=== PATIENT | female | born 1980 | race Caucasian/White ===

== ENCOUNTER 2018-06-29 12:42 | Outpatient (CLI) | payer BC, OTHER ==
[~2018-06-29 12:42] MED LIST: SERT100T PO
[2018-06-29] MEDS ORDERED: 5-HY100C3 PO (13:17)
== END 2018-06-29 23:59 | disposition home or self-care (01) ==
LOC: STAR 12:42
PROVIDERS: ATTEND Otolaryngology
DX: Z02.9 Encounter for administrative examinations, unspecified (principal)

== ENCOUNTER 2018-07-03 06:43 | Day surgery (SDC) | payer BC, OTHER ==
[~2018-07-03] VITALS: Ht 165.1 cm; Wt 70.0 kg
[~2018-07-03 06:43] MED LIST changes: +5-HY100C3 PO
[2018-07-03] MEDS ORDERED: LACTATED RINGERS 1,000 ML IV SCH ×2 (07:08→07:25)
[2018-07-03] MEDS ORDERED: OXYMETAZOLINE NASAL SPRAY 0.05%, 15ML ONE (07:10)
[2018-07-03 07:22] VITALS: BP 103/65
[2018-07-03] MEDS ORDERED: DIAZEPAM 5 MG TABLET PO ONE (07:30)
[2018-07-03] MEDS ORDERED: SCOPOLAMINE PATCH, 1.5MG PATCH.TD72 TD ONE (07:30)
[2018-07-03] MEDS ORDERED: ONDANSETRON ODT 8 MG PO ONE (07:30)
[2018-07-03] MEDS ORDERED: ACETAMINOPHEN 500 MG TABLET PO ONE (07:30)
[2018-07-03] MEDS ORDERED: GABAPENTIN 300 MG CAPSULE PO ONE (07:30)
[2018-07-03 07:54] LABS: HCG UR SG 1.015 (1.003-1.030)
[2018-07-03] MEDS ORDERED: MIDAZOLAM 1 MG/ML, 2ML ONE (08:22)
[2018-07-03] MEDS ORDERED: FENTANYL PF 100 MCG/2ML ONE ×2 (08:22→09:39)
[2018-07-03] MEDS ORDERED: SUCCINYLCHOLINE 20 MG/ML, 10ML ONE (08:41)
[2018-07-03] MEDS ORDERED: PROPOFOL 10 MG/ML, 50ML ONE (08:41)
[2018-07-03] MEDS ORDERED: KETOROLAC 30 MG/1 ML ONE (08:41)
[2018-07-03] MEDS ORDERED: hydrALAzine 20 MG/ML, 1ML IV PRN (09:00)
[2018-07-03] MEDS ORDERED: OXYcodone 5 MG/5 ML ORAL.SOL UDC PO PRN (09:00)
[2018-07-03] MEDS ORDERED: ALBUTEROL/IPRATROPIUM 2.5MG/0.5MG, 3 ML NPPB PRN (09:00)
[2018-07-03] MEDS ORDERED: MIDAZOLAM 1 MG/ML, 2ML IV PRN (09:00)
[2018-07-03] MEDS ORDERED: ONDANSETRON 2MG/ML, 2ML IV PRN (09:00)
[2018-07-03] MEDS ORDERED: HYDROmorphone 2 MG/ML, 1ML IVPush PRN (09:00)
[2018-07-03] MEDS ORDERED: PROMETHAZINE 25 MG/ML, 1ML IV PRN (09:00)
[2018-07-03] MEDS ORDERED: NEOSTIGMINE 1 MG/ML, 10ML ONE (09:07)
[2018-07-03] MEDS ORDERED: CEFAZOLIN 1,000 MG ONE (09:07)
[2018-07-03] MEDS ORDERED: DEXAMETHASONE 4 MG/ML, 1ML ONE (09:07)
[2018-07-03] MEDS ORDERED: PROPOFOL 10 MG/ML, 20ML ONE (09:07)
[2018-07-03] MEDS ORDERED: ROCURONIUM 10MG/ML,5ML ONE (09:07)
[2018-07-03] MEDS ORDERED: GLYCOPYRROLATE 0.2MG/1ML, 5ML ONE (09:07)
[2018-07-03] MEDS ORDERED: OXYcodone 5 MG/5 ML ORAL.SOL UDC ONE (09:39)
[2018-07-03] MEDS: FENTANYL PF 100 MCG/2ML IV PRN ×2 (09:40→09:55)
== END 2018-07-03 12:40 | disposition home or self-care (01) ==
LOC: OUT 06:43
PROVIDERS: ATTEND Otolaryngology
DX: J03.91 Acute recurrent tonsillitis, unspecified (principal); Z72.89 Other problems related to lifestyle
CPT/HCPCS: 42826; 81025; 88304; J0330; J0690; J1100; J1885; J2250; J2704; J2710; J3010; J3490; J7120; Q0162